=== PATIENT | male | born 1940 | race African-American/Black ===

== ENCOUNTER → 2017-02-08 | Outpatient (CLI) | payer OTHER ==
[2015-09-29 09:30] VITALS: BP 129/79
--- NOTE | 2017-02-08 13:56 | VAS ---
HISTORY: Occlusion and stenosis of bilateral carotid arteries, dizziness Study: Bilateral Carotid Ultrasound Comparison: None Technique: Multiple lee scale and color flow Doppler images of the right and left carotid arterial system were obtained. The vertebral arterial system was evaluated as well. Findings: Normal color flow Doppler is seen throughout the right and left carotid arterial system. There is s mooth calcified plaque seen at the bilateral carotid bifurcations. Peak systolic velocity in the rig ht ICA is 57.7 centimeters/second. Peak systolic velocity in the left ICA is 82.5 centimeters/second . The right ICA/CCA ratio is 0.64. The left ICA/CCA ratio is 1.02. The right and left vertebral alberto luis demonstrate antegrade flow. IMPRESSION: 1. No hemodynamically significant stenosis identified. Reported By:
== END ==
LOC: RAD 11:19
PROVIDERS: ATTEND Physician Assistant
DX: I65.23 Occlusion and stenosis of bilateral carotid arteries (principal); R42 Dizziness and giddiness; H81.13 Benign paroxysmal vertigo, bilateral
CPT/HCPCS: 93880